=== PATIENT | female | born 1940 | race Caucasian/White ===

== ENCOUNTER 2021-07-24 13:08 | Outpatient (CLI) | payer MEDICARE | END 2021-07-24 13:09 | disposition home or self-care (01) | LOC: CSHMAMMO 13:08 | PROVIDERS: ATTEND Internal Medicine | DX: Z12.31 Encounter for screening mammogram for malignant neoplasm of breast (principal); Z13.820 Encounter for screening for osteoporosis; M81.0 Age-related osteoporosis without current pathological fracture; M85.852 Other specified disorders of bone density and structure, left thigh; Z80.3 Family history of malignant neoplasm of breast; Z78.0 Asymptomatic menopausal state; Z85.3 Personal history of malignant neoplasm of breast; Z90.12 Acquired absence of left breast and nipple | CPT/HCPCS: 77063; 77067; 77080 ==

== ENCOUNTER 2022-03-11 11:26 | Emergency (ER) | payer MEDICARE ==
[2022-03-11] MEDS ORDERED: Bacitracin 1 PK ONE (13:01)
[2022-03-11] MEDS ORDERED: Boostrix 0.5 ML (Tdap) VIAL (>/=7 yrs of age) ONE (13:01)
== END 2022-03-11 13:08 | disposition home or self-care (01) ==
LOC: CSHERS 11:26
DX: S51.812A Laceration without foreign body of left forearm, initial encounter (principal); I10 Essential (primary) hypertension; I48.91 Unspecified atrial fibrillation; Z23 Encounter for immunization; W22.8XXA Striking against or struck by other objects, initial encounter
CPT/HCPCS: 90471; 90715

== ENCOUNTER 2022-04-10 11:51 | Observation (INO) | payer MEDICARE ==
[2022-04-10 12:53] LABS: Bilirubin Neg (Negative); Blood, Urine Negative (Negative); Clarity Sl. Cloudy (Clear); Glucose, Urine (Dipstick) Normal (Negative); Ketone, Urine Negative (Negative); Leukocyte 25 (Negative); Nitrite Negative (Negative); Protein, Urine (Dipstick) Negative (Neg-Trace); Urobilinogen Normal mg/dL (Less than 2)
[2022-04-10 12:54] LABS: #Eosinphils 0.1 10x3/uL (0.0-0.5); #Monocytes 0.4 10x3/uL (0.0-1.1); #Neutrophils 2.1 10x3/uL (1.5-8.4); %Basophils 0.8 % (0.0-2.0); %Eosinophils 1.4 % (0.0-6.0); %Lymphocytes 29.6 % (18.0-47.0); %Monocytes 9.8 % (0.0-10.0); %Neutrophils 58.1 % (40.0-75.0); Hemoglobin 13.4 g/dL (12.0-15.5); Mean Corpuscular HGB CONC 33.5 g/dL (32.0-36.0); Mean Corpuscular Hemoglobin 31.2 pg (27.0-33.0); Mean Corpuscular Volume 93.2 fl (81.6-98.3); Mean Platelet Volume 11.9 fl (7.4-10.4); Platelet Count 131 10x3/uL (150-450); RBC Distribution Width 12.6 % (11.5-14.5); Red Blood Cell (RBC) Count 4.29 10x6/uL (3.90-5.03); White Blood Cell (WBC) Count 3.6 10x3/uL (3.5-10.5)
[2022-04-10 12:57] LABS: INR-International Normal Ratio 1.1; PTT 30.4 sec (22.0-33.0); Prothrombin Time 11.4 sec (9.5-12.1)
[2022-04-10 12:59] LABS: ALT (SGPT) 16 U/L (8-55); AST (SGOT) 25 U/L (5-34); Albumin 4.2 g/dL (3.4-4.8); Alkaline Phosphatase 80 U/L (40-110); Anion Gap 11 mmol/L (10-20); BUN (Urea Nitrogen) 13 mg/dL (9.8-20.1); Bilirubin, Total 2.4 mg/dL (0.2-1.2); Calc. Creatinine Clearance 0 mL/min (70-130); Calcium 9.3 mg/dL (7.8-10.44); Carbon Dioxide 25 mmol/L (23-31); Chloride 105 mmol/L (98-107); Estimated GFR 79; Globulin 2.9 g/dL (2.4-3.5); Glucose 95 mg/dL (83-110); Potassium 4.2 mmol/L (3.5-5.1); Protein, Total 7.1 g/dL (5.8-8.1); Sodium 137 mmol/L (136-145)
[2022-04-10 13:05] LABS: Bacteria/HPF 1+ HPF (None Seen); RBC/HPF 0-3 HPF (0-3); Squamous Epithelial 0-3 HPF (0-3); WBC/HPF 0-3 HPF (0-3)
[2022-04-10] MEDS ORDERED: Ondansetron PF 4 MG/2 ML Vial IVP PRN (14:54)
[2022-04-10] MEDS ORDERED: Acetaminophen 325 MG TAB PO PRN (14:54)
[2022-04-10] MEDS ORDERED: Ondansetron ODT 4 MG TAB PO PRN (14:54)
[2022-04-10 15:36] LABS: Magnesium 2.2 mg/dL (1.6-2.6)
[2022-04-10 15:43] LABS: Troponin I Less than 0.010 ng/mL (< 0.028)
[2022-04-10 16:53] VITALS: BMI 17.5
[2022-04-10 19:11] LABS: Troponin I Less than 0.010 ng/mL (< 0.028)
[2022-04-10 19:44] LABS: Hemoglobin A1c 5.2 % (4.0-6.0)
[2022-04-10] MEDS ORDERED: Atorvastatin Calcium 40 MG TAB PO SCH (21:00)
[2022-04-10 21:18] LABS: Troponin I Less than 0.010 ng/mL (< 0.028)
[2022-04-10] MEDS ORDERED: Apixaban 5 MG TAB PO SCH (21:45)
[2022-04-10] MEDS ORDERED: Escitalopram Oxalate 10 mg Tablet PO SCH (21:45)
[2022-04-11 05:14] LABS: #Eosinphils 0.1 10x3/uL (0.0-0.5); #Monocytes 0.5 10x3/uL (0.0-1.1); #Neutrophils 1.9 10x3/uL (1.5-8.4); %Basophils 0.8 % (0.0-2.0); %Eosinophils 2.5 % (0.0-6.0); %Lymphocytes 37.8 % (18.0-47.0); %Monocytes 11.8 % (0.0-10.0); %Neutrophils 46.8 % (40.0-75.0); Hemoglobin 12.2 g/dL (12.0-15.5); Mean Corpuscular HGB CONC 33.8 g/dL (32.0-36.0); Mean Corpuscular Hemoglobin 31.1 pg (27.0-33.0); Mean Corpuscular Volume 92.1 fl (81.6-98.3); Mean Platelet Volume 11.6 fl (7.4-10.4); Platelet Count 122 10x3/uL (150-450); RBC Distribution Width 12.5 % (11.5-14.5); Red Blood Cell (RBC) Count 3.92 10x6/uL (3.90-5.03)
[2022-04-11 05:25] LABS: Anion Gap 10 mmol/L (10-20); BUN (Urea Nitrogen) 12 mg/dL (9.8-20.1); Calc. Creatinine Clearance 45 mL/min (70-130); Calcium 8.9 mg/dL (7.8-10.44); Carbon Dioxide 26 mmol/L (23-31); Cardiac Risk 2.9 (Less than 4.5); Chloride 109 mmol/L (98-107); Cholesterol 144 mg/dl (< 200 Desired); Estimated GFR 84; Glucose 82 mg/dL (83-110); HDL Cholesterol 49 mg/dL (>60 Neg Risk); LDL Cholesterol, Calculated 84 mg/dL; Sodium 141 mmol/L (136-145); Triglycerides 57 mg/dL (Less than 150)
[2022-04-11] MEDS ORDERED: Aspirin 81 mg Enteric Coated Tablet PO SCH (09:00)
[2022-04-11] MEDS ORDERED: Apixaban 5 MG TAB PO SCH (09:00)
[2022-04-11] MEDS ORDERED: Multivit, Therapeutic 1 TAB PO SCH (09:00)
[2022-04-11] MEDS ORDERED: Metoprolol Tartrate 25 MG TAB PO SCH ×2 (09:00→21:00)
[2022-04-11] MEDS ORDERED: Apixaban 2.5 MG TAB PO SCH ×2 (09:30→21:00)
[2022-04-11] MEDS ORDERED: Iopamidol 370 76% 100 ML VIAL ONE (09:42)
[2022-04-11 16:14] VITALS: BP 133/60; TEMP 98.2
[2022-04-11] MEDS ORDERED: Melatonin 3 MG TAB PO SCH (21:00)
[2022-04-11] MEDS ORDERED: Escitalopram Oxalate 10 mg Tablet PO SCH (21:00)
== END 2022-04-11 16:58 | disposition home or self-care (01) ==
LOC: CSHERS 11:51 → CSHTELE 15:40
PROVIDERS: ADMIT Family Medicine; ATTEND Family Medicine
DX: R42 Dizziness and giddiness (principal); R26.81 Unsteadiness on feet; R55 Syncope and collapse; R29.700 NIHSS score 0; I10 Essential (primary) hypertension; I48.19 Other persistent atrial fibrillation; R00.1 Bradycardia, unspecified; I08.3 Combined rheumatic disorders of mitral, aortic and tricuspid valves; R63.4 Abnormal weight loss; D69.6 Thrombocytopenia, unspecified; Z85.3 Personal history of malignant neoplasm of breast; Z86.73 Personal history of transient ischemic attack (TIA), and cerebral infarction without residual deficits; Z79.01 Long term (current) use of anticoagulants; Z79.899 Other long term (current) drug therapy; Z20.822 Contact with and (suspected) exposure to COVID-19; Z90.12 Acquired absence of left breast and nipple; Z90.49 Acquired absence of other specified parts of digestive tract; Z90.710 Acquired absence of both cervix and uterus
CPT/HCPCS: 70450; 70551; 71045; 71275; 80048; 80061; 83036; 83735; 84484 ×2; 85025; 85610; 85730; 93005 ×2; 93306; 93880; 94760; 99285; G0378 ×3; U0003; U0005; 80053; 81003; 81015; 84443; 93010; Q9967

== ENCOUNTER 2022-08-01 14:31 | Outpatient (CLI) | payer MEDICARE | END 2022-08-01 14:32 | disposition home or self-care (01) | LOC: CSHMAMMO 14:31 | PROVIDERS: ATTEND Internal Medicine | DX: Z12.31 Encounter for screening mammogram for malignant neoplasm of breast (principal); R92.1 Mammographic calcification found on diagnostic imaging of breast; Z90.12 Acquired absence of left breast and nipple; Z80.3 Family history of malignant neoplasm of breast | CPT/HCPCS: 77063; 77067 ==

== ENCOUNTER 2023-05-14 09:33 | Outpatient (CLI) | payer MEDICARE | END 2023-05-14 09:34 | disposition home or self-care (01) | LOC: CSHULT 09:33 | PROVIDERS: ATTEND Internal Medicine | DX: E04.1 Nontoxic single thyroid nodule (principal); E04.2 Nontoxic multinodular goiter | CPT/HCPCS: 76536 ==

== ENCOUNTER 2023-08-17 12:45 | Outpatient (CLI) | payer MEDICARE | END 2023-08-17 12:46 | disposition home or self-care (01) | LOC: CSHMAMMO 12:45 | PROVIDERS: ATTEND Internal Medicine | DX: Z12.31 Encounter for screening mammogram for malignant neoplasm of breast (principal); Z80.3 Family history of malignant neoplasm of breast; Z85.3 Personal history of malignant neoplasm of breast; Z90.12 Acquired absence of left breast and nipple | CPT/HCPCS: 77063; 77067 ==

== ENCOUNTER 2024-08-06 10:05 | Outpatient (CLI) | payer MEDICARE | END 2024-08-06 10:06 | disposition home or self-care (01) | LOC: CSHRAD 10:05 | PROVIDERS: ATTEND Family Medicine | DX: R09.81 Nasal congestion (principal); R91.8 Other nonspecific abnormal finding of lung field | CPT/HCPCS: 71046 ==

== ENCOUNTER 2024-08-09 08:42 | Outpatient (CLI) | payer MEDICARE | END 2024-08-09 08:43 | disposition home or self-care (01) | LOC: CSHRAD 08:42 | PROVIDERS: ATTEND Internal Medicine | DX: R93.89 Abnormal findings on diagnostic imaging of other specified body structures (principal) | CPT/HCPCS: 71046 ==

== ENCOUNTER 2024-09-29 10:15 | Outpatient (CLI) | payer MEDICARE | END 2024-09-29 10:16 | disposition home or self-care (01) | LOC: CSHRAD 10:15 | PROVIDERS: ATTEND Internal Medicine | DX: M54.9 Dorsalgia, unspecified (principal); W19.XXXA Unspecified fall, initial encounter | CPT/HCPCS: 71111; 72072 ==